=== PATIENT | male | born 1965 | race Caucasian/White ===

== ENCOUNTER 2017-08-05 11:31 | Inpatient (IN) ==
[2017-08-05] MEDS ORDERED: CeFAZolin Syr 2,000MG/20 ML 2,000 MG/20 ML SYRINGE IVPB ONE (12:06)
[2017-08-05] MEDS ORDERED: Ringers Solution, Lactated 1,000 ML IVC SCH (12:15)
[2017-08-05] MEDS ORDERED: Famotidine 20 MG/2 ML VIAL IVP ONE (13:05)
[2017-08-05] MEDS ORDERED: Pregabalin 75 MG CAPSULE PO ONE (13:05)
[2017-08-05] MEDS ORDERED: Acetaminophen IV 1,000 MG/100 ML INFUS..BTL IVPB ONE (13:06)
--- NOTE | 2017-08-05 13:09 | Anesthesia Evaluation PreOp ---
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 History: Denies Any Significant HX Other Medical History: Diabetes Type II, GERD Anesthesia History: No Prior Anesthetic Complications Alcohol Use: none Drug use: none Medications and Allergies Aspirin 81 mg PO DAILY 08/13/16 [History] Gabapentin [Neurontin] 1,200 mg PO TID 08/13/16 [History] Lisinopril [Zestril] 10 mg PO DAILY 08/13/16 [History] Metoprolol [Lopressor] 50 mg PO BID 08/13/16 [History] glipiZIDE [Glucotrol] 5 mg PO BID 08/13/16 [History] Pravastatin Sodium 10 mg PO DAILY 09/22/16 [History] Sitagliptin Phos/Metformin HCl [Janumet 50-1,000 mg Tablet] 1 tab PO BID [History] Ascorbic Acid [Vitamin C] 500 mg PO DAILY 365 Days tablet.er 11/26/16 [Rx] Ferrous Sulfate [Iron] 325 mg PO DAILY #0 11/26/16 [Rx] Loratadine [Allergy Relief] 10 mg PO DAILY PRN #0 11/26/16 [Rx] Tamsulosin [Flomax] 0.4 mg PO DAILY #7 cap.er.24h 01/13/17 [Rx] Albuterol Sulfate [Ventolin Hfa] 2 puff IH Q6H PRN 08/05/17 [History] Celecoxib [Celebrex] 200 mg PO DAILY 08/05/17 [History] Insulin ASPART [NovoLOG] 8 - 12 unit SQ TID PRN 08/05/17 [History] Insulin Glargine,Hum.rec.anlog [Basaglar Kwikpen U-100] 16 unit SQ HS 08/05/17 [ History] Liraglutide [Victoza 2-Artie] 0.6 mg IJ DAILY 08/05/17 [History] Omeprazole [PriLOSEC] 20 mg PO DAILY 08/05/17 [History] Tramadol HCl [Ultram] 50 - 100 mg PO Q8H PRN 08/05/17 [History] 3 Allergy/AdvReac Type Severity Reaction Status Date / Time promethazine [From Phenergan] AdvReac Severe Seizure Verified 08/05/17 12:51 - Meds/Allergy Pre-op Review Medications Reviewed: Yes Allergies Reviewed: Yes Beta Blockers on Current Med List: Yes (Took Metoprolol today 0900) Anesthesia Results - Labs Laboratory Tests 01/13/17 08/03/17 18:36 11:15 Hgb 11.9 L Hct 39.6 Plt Count 307 Sodium 139 Potassium 4.3 BUN 17 Creatinine 0.97 - Imaging EKG: report reviewed (Sinus Rhytmn, moderate intraventricular delay) Anesthesia Exam O2 Sat Height 1.77 m Height 1.77 m Height 1.77 m Weight 108.862 kg Weight 108.862 kg Weight 108.862 kg O2 Sat by Pulse Oximetry 98 Vital Signs Temp Pulse Resp BP Pulse Ox 97.6 F 60 18 121/76 98 08/05/17 11:53 08/05/17 11:53 08/05/17 11:53 08/05/17 11:53 08/05/17 11:53 Height: 5'10 Weight: 240 lbs NPO (# of Hours): MN Pain Scale: 0 - HEENT Pupil (Motor): Pupils equal, EOMI Mallampati: III Teeth: Normal Oral Opening: Less than or equal to 3 - MEAT AND POULTRY INSPECTOR LOC: Oriented MEAT AND POULTRY INSPECTOR Motor: Normal RUE, Normal LUE, Normal RLE, Normal LLE, Normal Face MEAT AND POULTRY INSPECTOR Sensory: Normal: RUE, LUE, RLE, LLE, Face - Cardiac Rhythm: Regular Murmur: None JVD: No Carotid Bruit: No - Pulmonary Breath Sounds: bilateral Clear Respiratory Effort: Symmetrical Anesthesia Assess/Plan ASA Score: 3 (HTN DM Gerd) Modified Laury Scale for Level of Consciousness: Cooperative, oriented, and tranquil Anesthetic Plan: General Monitoring Plan: Standard Monitors Recovery Plan: PACU (Discussed GA, agrees to proceed)
--- NOTE | 2017-08-05 13:31 | History & Physical Report ---
Date of Encounter: 08/05/17 Time of Encounter: 13:30 24 Hour HP Update - Instructions Instructions: If the History and Physical is less than 30 days old and was completed prior to A.M. admission and or procedure and has NOT been updated on calendar day of procedure please complete this update prior to performing procedure. - Update Patient reports changes in Medical Condition: No Changes in examination, assessment, or condition: No Changes in Medication: No Preop tests/diagnostics Reviewed: Yes Surgery Remains Indicated: Yes Consent for Planned Operative Procedure(s) Verified: Yes - Pre-Operative Checklist Preoperative Checklist Indicated: Yes Prophylactic Antibiotic Ordered: Yes Home Medications Include Beta Scott: Yes Beta Scott Taken Today (Day of Surgery): Yes Beta Scott Taken Yesterday (Day Prior to Surgery): Yes Is VTE Prophylaxis Indicated?: Yes
[2017-08-05] MEDS ORDERED: *HR* Succinylcholine 200 MG/10 ML VIAL IVP ONE (14:29)
[2017-08-05] MEDS ORDERED: *HR* Propofol 200 MG/20 ML VIAL IVP ONE ×3 (14:29→17:57)
[2017-08-05] MEDS ORDERED: Lidocaine -MPF 2% 2 ML VIAL ONE (14:29)
[2017-08-05] MEDS ORDERED: *HR* FentaNYL (PF) 100 MCG/2 ML VIAL ONE (14:39)
[2017-08-05] MEDS ORDERED: *HR* Rocuronium Bromide 50 MG/5 ML VIAL ONE (14:40)
[2017-08-05] MEDS ORDERED: Ondansetron 4 MG/2 ML VIAL ONE (14:40)
[2017-08-05] MEDS ORDERED: Dexamethasone 4 MG/ML VIAL ONE (14:40)
[2017-08-05] MEDS ORDERED: *HR* Midazolam HCl 2 MG/2 ML VIAL ONE (14:40)
[2017-08-05] MEDS ORDERED: Lidocaine -MPF 4% 5 ML AMPUL ONE (14:42)
[2017-08-05] MEDS ORDERED: CefOXitin 1,000 MG VIAL ONE (15:18)
[2017-08-05] MEDS ORDERED: Neostigmine Methylsulfate 3 MG/3 ML SYRINGE ONE (16:04)
[2017-08-05] MEDS ORDERED: *HR* HYDROmorphone 2 MG/ML SYRINGE ONE ×2 (16:35→18:27)
[2017-08-05] MEDS ORDERED: *HR* HYDROmorphone (PF) 1 MG/ML SYRINGE IVP PRN (16:37)
[2017-08-05] MEDS ORDERED: Ondansetron 4 MG/2 ML VIAL IVP ONE (16:37)
[2017-08-05] MEDS ORDERED: *HR* Heparin 5,000 UNIT/ML VIAL SQ SCH (18:00)
--- NOTE | 2017-08-05 18:59 | Operative Note ---
Date of procedure: 08/05/17 Pre-op diagnosis: Paraesophageal hernia Post-op diagnosis: same Procedure: #1 open repair of paraesophageal hiatal hernia #2 open Kalli fundoplication Anesthesia: SUE Surgeon: Gomez Perez Was there an assistant corporate secretary present: No Estimated blood loss (cc): 100 Specimen: Hernia sac Condition: stable Disposition: PACU Procedure in Detail: After informed consent patient was taken to the major operative suite placed in the supine position given adequate general anesthetic. The abdomen is prepped and draped in sterile fashion utilizing ChloraPrep standard draping techniques. Timeout was taken and the patient was identified. Midline vertical midline incision the upper abdomen. The left lobe of the liver was mobilized by dividing the triangular ligament and reflecting the left lobe inferiorly. 95% of the stomach was in the chest. There was a very complex set of hernia sacs and folds at the hiatus. I placed a nasogastric tube but was unable to pass this into the abdomen. I began by dissecting the folds of the hernia sac. Once several folds were dissected out is able to reduce the stomach out of the chest. I then pulled the hernia sac down out of the chest and made a circumferential dissection around the hiatus removing all of the hernia sac attachments from mediastinal. I then identified the right and left augusto of the diaphragm. Dissection was aided by placing a lighted bougie in the esophagus. The esophagus was positively identified at all times and there was no trauma to the esophagus. Once all of the stomach was out of the chest I worked on mobilizing the adhesions to the spleen and dividing the short gastrics to the cardia. Once this was accomplished with clips and Harmonic I was able to visualize the right and left augusto with the esophagus retracted upward into the left. I performed hiatal hernia repair. 5 stitches of 2-0 Ethibond with pledgets were used. The repair was performed around the esophagus with a 56- Indonesian bougie in place. The tension on the esophagus was perfect. The mobilized cardia was then brought behind the esophagus and I performed Kalli fundoplication with 3 stitches of 2-0 Ethibond with pledgets. 2 shoulder stitches were created between each side of the Kalli fundoplication and the diaphragm to further stabilize the medicine. I then performed an anterior gastropexy selling the anterior surface of the greater curvature and cardia of the stomach to the diaphragm along its normal anatomic relationship. This gave an excellent technical result. I reviewed copious amounts of antibiotic containing solution. The bougie was removed. Total blood loss 100 mL. Patient tolerated procedure well. Midline was closed with looped 0 PDS skin with interrupted 2-0 Vicryl and skin clips
--- NOTE | 2017-08-05 19:46 | Anesthesia Evaluation Post Op ---
Date of Encounter: 08/05/17 Time of Encounter: 19:45 - Vital Signs Vital Signs: Last Vital Signs Temp 100.5 F H 08/05/17 19:08 Pulse 75 08/05/17 19:28 Resp 16 08/05/17 19:28 BP 114/94 08/05/17 19:28 Pulse Ox 93 08/05/17 19:28 - Lungs Lungs: Clear Ascult./Percussion - Airway Airway: Non-obstructed - Cardiovascular Regular Rate - Mental Status Mental Status: Alert & Oriented, Answers Appropriately - Pain Pain Scale: 5 - Nausea Vomiting Nausea Vomiting: Not Present - Hydration Hydration: NPO - Discharge PostOp Status: Transfer Patient to floor
[2017-08-05] MEDS ORDERED: *HR* Dextrose 50 % in Water (Syg) 50 ML SYRINGE IVP PRN (21:49)
[2017-08-05] MEDS ORDERED: Dextrose Gel 15 GM/37.5 ML TUBE PO PRN ×2 (21:49)
[2017-08-05] MEDS ORDERED: D5% in Water 1,000 ML IVC PRN (21:49)
[2017-08-05] MEDS ORDERED: Ondansetron 4 MG/2 ML VIAL IVP PRN (21:49)
[2017-08-05] MEDS: *HR* HYDROmorphone (PF) 1 MG/ML SYRINGE IVP PRN ×2 (22:27→23:49)
[2017-08-05] MEDS: 0.9 % Sodium Chloride 1,000 ML IVC SCH (23:35)
[2017-08-05] MEDS: CeFAZolin Premix DUPLEX 2,000 MG/50 ML BAG IVPB SCH (23:36)
[2017-08-06] MEDS: *HR* Metoprolol 5 MG/5 ML VIAL IVP SCH ×4 (00:43→17:29)
[2017-08-06] MEDS: Insulin LISPRO 300 UNITS/3 ML VIAL SQ SCH ×4 (00:49→17:28)
[2017-08-06] MEDS: *HR* HYDROmorphone (PF) 1 MG/ML SYRINGE IVP PRN ×14 (02:40→22:37)
[2017-08-06] MEDS: *HR* Heparin 5,000 UNIT/ML VIAL SQ SCH ×2 (05:56→17:36)
[2017-08-06 06:10] LABS: Basophils % 0.2 %; Eosinophils % 0.4 %; Hematocrit 33.7 % (37.5-50.1); Hemoglobin 10.5 g/dL (12.9-16.9); Immature Granulocytes % 0.4 % (0-4); Lymphocytes # 1.1 K/mcL (0.6-4.6); Lymphocytes % 13.1 %; Mean Corpuscular HGB Conc 31.2 g/dL (31.6-35.5); Mean Corpuscular Hemoglobin 25.3 pg (28.0-33.3); Mean Corpuscular Volume 81.2 fL (83.0-100.0); Mean Platelet Volume 9.6 fL (9.4-12.4); Monocytes # 0.7 K/mcL (0.0-1.3); Monocytes % 8.4 %; Neutrophils # 6.6 K/mcL (1.6-8.9); Platelet Count 219 K/mcL (140-400); Red Blood Count 4.15 M/mcL (4.19-5.50); Red Cell Distribution Width 13.1 % (11.5-14.5); Segmented Neutrophils % 77.5 %
[2017-08-06 06:33] LABS: BUN/Creatinine Ratio 18 (6-26); Blood Urea Nitrogen 17 mg/dL (6-20); Calcium 8.4 mg/dL (8.6-10.3); Carbon Dioxide 28 mEq/L (23-29); Chloride 103 mEq/L (98-107); Glucose 155 mg/dL (70-105); Osmolality,Calculated 287 (280-300); Potassium 3.9 mEq/L (3.5-5.1); Sodium 136 mEq/L (136-145); eGFR For African Americans > 60 (> 60); eGFR For Non-African Americans > 60 (> 60)
--- NOTE | 2017-08-06 06:48 | General Surgery Progress Note ---
<RanchoMaribel - Last Filed: 08/06/17 09:52> Date of Encounter: 08/06/17 Time of Encounter: 06:46 - Assessment and Plan (1) S/P repair of paraesophageal hernia Current Visit: Yes Status: Acute 52 y M POD 1 S/P open repair of paraesophageal hiatal hernia and open Kalli fundoplication Remains afebrile this AM, hemodynamically stable. Denies Nausea or vomiting. Continue monitoring bowel function, will plan to advance diet to liquids cautiously following return of normoactive bowel sounds. May have a few ice chips to wet mouth. Serial abdominal examinations Antiemetics PRN ordered, especially for the first 24 hours postoperatively to minimize risk of post-op N/V. Pain management: Dilaudid Q1 PRN, with continuous glass carrier. Call MD if pain acutely worsens. Bowel rest Encourage ambulation with assistance TID, or as tolerated. (2) DM type 2 (diabetes mellitus, type 2) Current Visit: No Status: Chronic Continue accuchecks. Sliding scale, adjust as needed Qualifiers: Diabetes mellitus complication status: with neurologic complications Diabetes mellitus complication detail: with polyneuropathy Diabetes mellitus chcf insulin use: with chcf use Qualified Code(s): E11.42 - Type 2 diabetes mellitus with diabetic polyneuropathy (3) Hypertension Current Visit: No Status: Chronic Continue medical management. IV lopressor while NPO. Qualifiers: Hypertension type: essential hypertension Qualified Code(s): I10 - Essential (primary) hypertension (4) DVT prophylaxis Current Visit: Yes Status: Acute Postoperative patient. Heparin SubQ. Subjective Patient reports: still having pain, no flatus, no bowel movement, afebrile Narrative: Recorded two consecutive temps of 100.3 and 100.5 yesterday evening at approx [id number]. Afebrile later that evening and this morning. Denies nausea/ vomiting. Endorses pain. States pain worsens with intermittent coughing. Patient requests ice chips. Objective Vital Signs - Last 8 Hours Temp Pulse Resp BP Pulse Ox 08/06/17 04:39 98.4 F 88 16 135/76 98 08/06/17 00:18 98.6 F 88 14 138/76 89 Intake and Output 08/05/17 08/05/17 08/06/17 15:59 23:59 07:59 Intake Total 50 / 50 Output Total 100 / 100 850 / 850 Balance -100 / -100 -800 / -800 Intake: IV Fluids 50 / 50 Ancef Premix DUPLEX 2,000 mg In 50 / 50 50 ml @ 100 mls/hr IVPB Q8HR [facility] Rx#:[id number] Oral 0 / 0 Output: Urine 550 / 550 Estimated Blood Loss 100 / 100 Catheter 300 / 300 Other: Weight 108.862 kg 108.886 kg Blood Glucose* 122 186 143 Patient Weight 08/06/17 23:59 Weight 108.886 kg - General physical appearance no distress, moderate pain - Eyes normal ocular movement - Respiratory normal expansion, normal respiratory effort, clear to auscultation - Cardiovascular Cardiovascular exam: Present: RRR, no murmurs/rubs/gallops - Abdomen Abdomen: Present: soft, non tender Additional Comments: hypoactive bowel sounds - Neurologic normal coordination - Psychiatric oriented to time, oriented to person, oriented to place, speech is normal - Labs 08/06/17 05:41 08/06/17 05:41 Diabetes panel 08/06/17 Range/Units 05:41 Sodium 136 (136-145) mEq/L Potassium 3.9 (3.5-5.1) mEq/L Chloride 103 (98-107) mEq/L Carbon Dioxide 28 (23-29) mEq/L BUN 17 (6-20) mg/dL Creatinine 0.94 (0.70-1.30) mg/dL Glucose 155 H (70-105) mg/dL Calcium 8.4 L (8.6-10.3) mg/dL Calcium panel 08/06/17 Range/Units 05:41 Calcium 8.4 L (8.6-10.3) mg/dL Pituitary panel 08/06/17 Range/Units 05:41 Sodium 136 (136-145) mEq/L Potassium 3.9 (3.5-5.1) mEq/L Chloride 103 (98-107) mEq/L Carbon Dioxide 28 (23-29) mEq/L BUN 17 (6-20) mg/dL Creatinine 0.94 (0.70-1.30) mg/dL Glucose 155 H (70-105) mg/dL Calcium 8.4 L (8.6-10.3) mg/dL Adrenal panel 08/06/17 Range/Units 05:41 Sodium 136 (136-145) mEq/L Potassium 3.9 (3.5-5.1) mEq/L Chloride 103 (98-107) mEq/L Carbon Dioxide 28 (23-29) mEq/L BUN 17 (6-20) mg/dL Creatinine 0.94 (0.70-1.30) mg/dL Glucose 155 H (70-105) mg/dL Calcium 8.4 L (8.6-10.3) mg/dL - VTE Documentation of Mechanical Device: Intermittent pneumatic compression device Consult Discharge Plan - Plan Instructions: Adult Open Kalli Fundoplication (DC) Additional Instructions: General Instructions After Kalli Surgery 1. No pushing, pulling, or lifting greater than 15 lbs for two weeks. 2. You may shower beginning today, but no tub baths, soaking, or swimming for 2 weeks. 3. You may resume driving when you are off narcotics and are safe to react in a car. 4. Take narcotics as directed. Do not take more narcotics then directed and do not share your narcotics with any other person. Do not drink alcohol while on narcotics. 5. Take stool softeners (Colace) or a water based laxative (Miramax) while taking narcotics. You may hold for loose stools. 6. Report any fevers greater than 100.5F, increase abdominal discomfort, drainage that looks like pus, increased redness or pain at the surgical site, or any vomiting. 7. Report any pain in the calves, shortness of breath, or rapid heartbeat. 8. Continue to take your heartburn medications until directed to stop. Do not stop them abruptly as this can cause symptoms of reflux. 9. Do not drink alcohol or carbonated beverages. 10. Do not deviate from the recommended Kalli diet below. Doing so can affect your outcomes. [place] [facility] Diet After Kalli Fundoplication Surgery This diet information is for patients who have recently had Kalli Fundoplication Surgery to correct reflux disease or to repair various types of hernias, such as hiatal hernia and intrathoracic stomach. This diet may also be used for other gastrointestinal surgeries, such as Heller myotomy and repair of achalasia. The diet will help control diarrhea, excess gas and swallowing problems, which may occur after this type of surgery. Important Steps to Keep Your Stomach From Stretching Eat small, frequent meals (six to eight per day). This will help you consume the majority of the nutrients you need without causing your stomach to feel full or distended. Drinking large amounts of fluids with meals can stretch your stomach. You may drink fluids between meals as often as you like, but limit fluids to 1/2 cup (4 fluid ounces) with meals and one cup (8 fluid ounces) with snacks. Sit upright while eating, and stay upright for 30 minutes after each meal. [place] can help food move through your digestive tract. Do not lie down after eating. Sit upright for 2 hours after your last meal or snack of the day. Eat very slowly. Take your time when eating. Take small bites and chew your food well to slat basket maker helper machine in swallowing and digestion. Avoid crusty breads and sticky, gummy foods, such as bananas, fresh doughy breads, rolls and doughnuts. These types of foods become sticky and difficult to swallow. Toasted breads tend to be better tolerated. Lastly, if you eat sweets, consume them at the end of your meal to avoid a group of symptoms referred to as dumping syndrome. This describes the rapid emptying of foods from the stomach to the small intestine. Sweetened beverages, candy and desserts move more rapidly and dump quickly into the intestines. This can cause symptoms of nausea, weakness, cold sweats, cramps, diarrhea and dizzy spells. Important Steps to Avoid Gas Do not drink through a straw, chew gum, or chew tobacco. These actions cause you to swallow air, which will produce excess gas in your stomach. Chew with your mouth closed and chew your food thoroughly. Avoid foods that cause stomach gas and distention. The foods include corn, dried beans, peas, lentils, onions, broccoli, cauliflower, and any food item from the cabbage family. Do not drink carbonated drinks, alcohol, citrus, or tomato products. What Will I Be Able To Eat and Drink After Surgery After Kalli Fundoplication Surgery, your diet will be advanced slowly by your surgeon. Generally, you will be on a thin/clear liquid diet for the first 10 days. Then you will advance to the full liquid diet for 4 days and eventually to a Kalli soft diet for 7 days. After any surgery, protein consumption is important for healing. To get enough protein, drink 3-4 [place] Instant Breakfast, Ensure, or equivalent daily. Reminder: Carbonated beverages (such as sodas, energy drinks, flavored carbonated water), and alcohol are not permitted for the 1st 6 to 8 weeks after surgery. After this time you may attempt to reintroduce them in small amounts. Please note: Dairy products such as milk, ice cream, and pudding may cause diarrhea in some people after surgery. You may need to avoid milk products. If so you may substitute them with lactose free beverages, such as soy, rice, lactate, or almond milk. Please be aware that each patient's tolerance to food is different. Your doctor will advance your diet depending on how well you progress after surgery. Thin Liquid Diet The first diet after Kalli Fundoplication Surgery is the thin liquids diet. Follow this diet for postoperative days 1-10 [ ]- [ ]. Thin liquids include: Apple, Cranberry, or Grape Juice (no citrus juice) Chicken Broth Beef Broth Flavored Gelatin (Jell-O) Decaffeinated Tea or Coffee Popsicles or Lebanese Ice Caffeinated Beverages Will Be Permitted Based upon Tolerance and at a later date Dairy if tolerated Thin Milkshakes (strawberry or vanilla flavored- No chocolate) Drink 3-4 [place] instant breakfast, Ensure, or equivalent daily. May be mixed with dairy for thin milkshakes Full Liquid Diet Follow this diet for postoperative days 11-14[ ] - [ ]. Full liquid diet includes anything in the thin liquid diet plus: Milk: Dairy, Soy, Rice, and [place] (No Chocolate) Cream of Wheat, Cream of Rice, Grits Strained Creamed Soups (No Tomato or Broccoli) Vanilla and [place] Flavored Ice Cream Sherbet Vanilla and Butterscotch Pudding (No Chocolate or Coconut) Continue 3-4 [place] Instant Breakfast, Ensure, or an Equivalent Daily. May be mixed with Dairy for Thin Milkshakes. Kalli Soft Diet Follow this diet for postoperative days 15-20 [ ] - [ ]. (If you are consuming enough protein, you may stop the protein supplements). Please note: You will need extra fluids throughout the day to meet your fluid needs. Referrals: June Bull CNP [Primary Care Provider] - Ana Sanches CNP [Advanced Practice Nurse] - 08/17/17 2:20 pm Prescriptions: Ondansetron ODT [Zofran ODT] 4 mg SL Q6HR #15 tab.rapdis OxyCODONE/APAP 10/325 [Percocet 10/325 MG] 1 each PO Q6HR PRN #24 tablet PRN Reason: Pain Ibuprofen [Motrin] 800 mg PO Q8HR #42 tablet Docusate [Colace] 100 mg PO BID #30 capsule <Gomez Perez - Last Filed: 08/09/17 08:56> Date of Encounter: 08/06/17 Objective Vital Signs - Last 8 Hours Temp Pulse Resp BP Pulse Ox 08/09/17 07:29 97.9 F 66 16 156/91 94 08/09/17 03:23 98.3 F 75 17 136/81 93 Intake and Output 08/08/17 08/09/17 08/09/17 23:59 07:59 15:59 Intake Total 480 / 480 Output Total 0 / 0 Balance 480 / 480 0 / 0 Intake: Oral 480 / 480 Output: Urine 0 / 0 Other: Meal Full # Voids 1 1 # Bowel Movements 0 Blood Glucose* 213 147 - Labs 08/06/17 05:41 08/06/17 05:41 - Attending Attestation I examined this patient and my medical decision-making was reviewed with the Resident Physician. I agree with the documented findings, disposition and treatment plan as described except to the extent set forth below. The patient is seen and evaluated on morning rounds with the resident. He is having difficulty with pain control make sure that he receives his when necessary narcotics on time. We should be able to advance his diet weekend. Gomez Perez MD FACS
[2017-08-06] MEDS: CeFAZolin Premix DUPLEX 2,000 MG/50 ML BAG IVPB SCH (08:24)
[2017-08-06] MEDS: Pantoprazole 40 MG VIAL IVP SCH (08:24)
[2017-08-06] MEDS: 0.9 % Sodium Chloride 1,000 ML IVC SCH ×2 (08:24→18:51)
[2017-08-06] MEDS ORDERED: Ketorolac 15 MG/ML VIAL IVP SCH (15:30)
[2017-08-06] MEDS: Ketorolac 15 MG/ML VIAL IVP SCH ×2 (16:53→22:04)
[2017-08-07] MEDS: Insulin LISPRO 300 UNITS/3 ML VIAL SQ SCH ×5 (00:11→23:58)
[2017-08-07] MEDS: *HR* HYDROmorphone (PF) 1 MG/ML SYRINGE IVP PRN ×12 (00:12→21:13)
[2017-08-07] MEDS: *HR* Metoprolol 5 MG/5 ML VIAL IVP SCH ×4 (00:12→18:06)
[2017-08-07] MEDS: Ketorolac 15 MG/ML VIAL IVP SCH ×4 (03:57→23:16)
[2017-08-07] MEDS: 0.9 % Sodium Chloride 1,000 ML IVC SCH ×2 (04:38→15:04)
[2017-08-07] MEDS: *HR* Heparin 5,000 UNIT/ML VIAL SQ SCH ×2 (06:27→18:06)
[2017-08-07] MEDS: Pantoprazole 40 MG VIAL IVP SCH (09:25)
--- NOTE | 2017-08-07 09:46 | General Surgery Progress Note ---
Addendum entered and electronically signed by Maribel Vickers MD 08/07/17 14:27: Pt re-evaluated with attending. Pt now endorses has since passed gas since morning rounds. States pain improving. -Aim to transition patient's pain management, titrate dilaudid down to q2h -Wound healing appropriately, with serina in place. Begin Daily dressing changes -D/c gunn -Cautious advancement to clear liquid diet Original Note: <Maribel Vickers - Last Filed: 08/07/17 09:43> Date of Encounter: 08/07/17 Time of Encounter: 09:43 - Assessment and Plan (1) S/P repair of paraesophageal hernia Current Visit: Yes Status: Acute 52 y M POD 2 S/P open repair of paraesophageal hiatal hernia and open Kalli fundoplication Remains afebrile this AM, hemodynamically stable. Serial abdominal examinations Antiemetics PRN ordered Continue pain management Encourage ambulation with assistance TID, or as tolerated. (2) DM type 2 (diabetes mellitus, type 2) Current Visit: No Status: Chronic Continue accuchecks. 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 IV lopressor while NPO. Qualifiers: Hypertension type: essential hypertension Qualified Code(s): I10 - Essential (primary) hypertension (4) DVT prophylaxis Current Visit: Yes Status: Acute Postoperative patient. Heparin SubQ. Subjective Patient reports: feels better, pain is less (rates pain now at 6-7), voiding w/ o difficulty, no flatus, no bowel movement, afebrile Narrative: No acute events overnight. Tolerating ice chips without difficulty. Requests advancement to liquid diet. Objective Vital Signs - Last 8 Hours Temp Pulse Resp BP Pulse Ox 08/07/17 06:29 98.2 F 88 16 142/81 93 08/07/17 04:28 97.4 F L 93 16 147/82 90 Intake and Output 08/06/17 08/07/17 08/07/17 23:59 07:59 15:59 Intake Total 1000 / 1000 1000 / 1000 387 / 387 Output Total 800 / 800 500 / 500 Balance 200 / 200 500 / 500 387 / 387 Intake: IV Fluids 1000 / 1000 1000 / 1000 387 / 387 0.9 % Sodium Chloride 1,000 ML 1000 / 1000 1000 / 1000 387 / 387 @ 100 mls/hr IVC .Q10H [facility] Rx#: [id number] Oral 0 / 0 0 / 0 Output: Catheter 800 / 800 500 / 500 Other: Meal NPO NPO Percent of Meal Consumed 0% # Bowel Movements 0 Weight 108.667 kg Blood Glucose* 118 139 Patient Weight 08/07/17 23:59 Weight 108.667 kg - General physical appearance no distress - Eyes normal ocular movement - Respiratory normal expansion, normal respiratory effort, clear to auscultation - Cardiovascular Cardiovascular exam: Present: RRR, no murmurs/rubs/gallops - Abdomen Abdomen: Present: bowel sounds present, soft, non tender (on light palpation), tender - Incision Incision: Present: intact (dressing). Absent: draining - Neurologic normal coordination - Psychiatric oriented to time, oriented to person, oriented to place, speech is normal - Labs 08/06/17 05:41 08/06/17 05:41 - VTE Documentation of Mechanical Device: Intermittent pneumatic compression device Consult Discharge Plan - Plan Referrals: June Bull CNP [Primary Care Provider] - Ana Sanches CNP [Advanced Practice Nurse] - 08/17/17 2:20 pm <Adan Mix - Last Filed: 08/07/17 18:15> Date of Encounter: 08/07/17 Objective Vital Signs - Last 8 Hours Temp Pulse Resp BP Pulse Ox 08/07/17 15:05 98.1 F 91 18 137/72 92 08/07/17 13:24 76 132/77 95 08/07/17 11:35 97 08/07/17 10:51 97.8 F 86 16 135/74 94 Intake and Output 08/07/17 08/07/17 08/07/17 07:59 15:59 23:59 Intake Total 1000 / 1000 2067 / 2067 Output Total 500 / 500 900 / 900 250 / 250 Balance 500 / 500 1167 / 1167 -250 / -250 Intake: IV Fluids 1000 / 1000 1387 / 1387 0.9 % Sodium Chloride 1,000 ML 1000 / 1000 1387 / 1387 @ 100 mls/hr IVC .Q10H [facility] Rx#: [id number] Oral 0 / 0 680 / 680 Output: Urine 300 / 300 250 / 250 Catheter 500 / 500 600 / 600 Other: Meal NPO # Bowel Movements 0 0 Weight 108.667 kg Blood Glucose* 139 147 138 Patient Weight 08/07/17 23:59 Weight 108.667 kg - Labs 08/06/17 05:41 08/06/17 05:41 - Attending Attestation I examined this patient and my medical decision-making was reviewed with the Resident Physician. I agree with the documented findings, disposition and treatment plan as described except to the extent set forth below. Review the above assessment and evaluation with the chemical engineering intern present. We will start dressing changes today. Remove Gunn catheter and encourage ambulation. We will start clears and start oral pain medication and will start to decrease IV pain medication.
[2017-08-07] MEDS ORDERED: *HR* Metoprolol 5 MG/5 ML VIAL IVP ONE (11:48)
[2017-08-07] MEDS: *HR* OxyCODONE/APAP 7.5/325 TABLET PO PRN ×2 (14:35→20:28)
[2017-08-08] MEDS: *HR* OxyCODONE/APAP 7.5/325 TABLET PO PRN ×4 (00:07→20:35)
[2017-08-08] MEDS: *HR* Metoprolol 5 MG/5 ML VIAL IVP SCH ×3 (00:07→12:12)
[2017-08-08] MEDS: *HR* HYDROmorphone (PF) 1 MG/ML SYRINGE IVP PRN ×4 (01:34→23:04)
[2017-08-08] MEDS: Ketorolac 15 MG/ML VIAL IVP SCH ×4 (04:03→21:32)
[2017-08-08] MEDS: *HR* Heparin 5,000 UNIT/ML VIAL SQ SCH ×2 (06:15→17:59)
[2017-08-08] MEDS: Insulin LISPRO 300 UNITS/3 ML VIAL SQ SCH ×3 (06:24→16:37)
[2017-08-08] MEDS: Pantoprazole 40 MG VIAL IVP SCH (09:01)
--- NOTE | 2017-08-08 10:16 | General Surgery Progress Note ---
<Maribel Vickers - Last Filed: 08/08/17 12:54> Date of Encounter: 08/08/17 Time of Encounter: 10:14 - Assessment and Plan (1) S/P repair of paraesophageal hernia Current Visit: Yes Status: Acute 52 y M POD 3 S/P open repair of paraesophageal hiatal hernia and open Kalli fundoplication Remains afebrile this AM, hemodynamically stable. Serial abdominal examinations Conservative advancement of diet, based upon return of bowel functions Antiemetics PRN ordered Continue pain management Encourage ambulation with assistance TID, or as tolerated. (2) DM type 2 (diabetes mellitus, type 2) Current Visit: No Status: Chronic Continue accuchecks. Sliding scale, adjust as needed Qualifiers: Diabetes mellitus complication detail: with unspecified neuropathy Diabetes mellitus heat and frost insulator helper insulin use: unspecified heat and frost insulator helper insulin use status Qualified Code(s): E11.40 - Type 2 diabetes mellitus with diabetic neuropathy, unspecified (3) Hypertension Current Visit: No Status: Chronic Continue medical management. Qualifiers: Hypertension type: essential hypertension Qualified Code(s): I10 - Essential (primary) hypertension (4) DVT prophylaxis Current Visit: Yes Status: Acute Heparin SubQ. Subjective Patient reports: no new complaints, feels better, tolerating liquids well, voiding w/o difficulty, flatus, no bowel movement, afebrile Narrative: No acute events overnight. Has not required Dilaudid this AM. States he is still "sore". Rates "sore" pain at a 7/10. Objective Vital Signs - Last 8 Hours Temp Pulse Resp BP Pulse Ox 08/08/17 10:10 98.3 F 71 16 134/82 96 08/08/17 07:37 97.8 F 67 18 147/84 94 08/08/17 04:03 98.4 F 74 17 148/85 93 Intake and Output 08/07/17 08/08/17 08/08/17 23:59 07:59 15:59 Intake Total 480 / 480 Output Total 450 / 450 615 / 615 300 / 300 Balance 30 / 30 -615 / -615 -300 / -300 Intake: Oral 480 / 480 Output: Urine 450 / 450 615 / 615 300 / 300 Other: # Bowel Movements 0 0 Blood Glucose* 168 133 - General physical appearance well developed, no distress - Eyes normal ocular movement - Respiratory normal expansion, normal respiratory effort, clear to auscultation - Cardiovascular Cardiovascular exam: Present: regular rhythm Addtional Comments: +S1, S2 - Abdomen Abdomen: Present: bowel sounds present, soft, non tender - Incision Incision: Present: intact. Absent: draining - Labs 08/06/17 05:41 08/06/17 05:41 - VTE Documentation of Mechanical Device: Intermittent pneumatic compression device Consult Discharge Plan - Plan Referrals: June Bull CNP [Primary Care Provider] - Ana Sanches CNP [Advanced Practice Nurse] - 08/17/17 2:20 pm <Adan Mix - Last Filed: 08/08/17 17:25> Date of Encounter: 08/08/17 Objective Vital Signs - Last 8 Hours Temp Pulse Resp BP Pulse Ox 08/08/17 14:29 97.9 F 75 16 128/91 95 08/08/17 10:10 98.3 F 71 16 134/82 96 Intake and Output 08/08/17 08/08/17 08/08/17 07:59 15:59 23:59 Intake Total 840 / 840 Output Total 615 / 615 525 / 525 Balance -615 / -615 315 / 315 Intake: Oral 840 / 840 Output: Urine 615 / 615 525 / 525 Other: Meal Breakfast # Bowel Movements 0 0 Blood Glucose* 133 207 82 - Labs 08/06/17 05:41 08/06/17 05:41 - Attending Attestation I examined this patient and my medical decision-making was reviewed with the Resident Physician. I agree with the documented findings, disposition and treatment plan as described except to the extent set forth below. I reviewed the above assessment and evaluation and agree with the above plan. Will further decrease his IV pain medication. Continue with current diet. Main issues will be pain control but likely discharge planning within the next 24 hours.
[2017-08-08] MEDS ORDERED: Insulin LISPRO 300 UNITS/3 ML VIAL SQ SCH ×2 (17:00→21:00)
[2017-08-09] MEDS: *HR* OxyCODONE/APAP 7.5/325 TABLET PO PRN (02:29)
[2017-08-09] MEDS: Ketorolac 15 MG/ML VIAL IVP SCH (03:17)
[2017-08-09] MEDS: *HR* HYDROmorphone (PF) 1 MG/ML SYRINGE IVP PRN (03:17)
[2017-08-09] MEDS: *HR* Heparin 5,000 UNIT/ML VIAL SQ SCH (06:25)
--- NOTE | 2017-08-09 07:16 | Discharge Summary ---
<Ana Sanches - Last Filed: 08/09/17 08:49> Date of Encounter: 08/09/17 - Discharge Medications Prescriptions: Ondansetron ODT [Zofran ODT] 4 mg SL Q6HR #15 tab.rapdis OxyCODONE/APAP 10/325 [Percocet 10/325 MG] 1 each PO Q6HR PRN #24 tablet PRN Reason: Pain Ibuprofen [Motrin] 800 mg PO Q8HR #42 tablet Docusate [Colace] 100 mg PO BID #30 capsule Home Medications: Aspirin 81 mg PO DAILY 08/13/16 [History] Gabapentin [Neurontin] 1,200 mg PO TID 08/13/16 [History] Lisinopril [Zestril] 10 mg PO DAILY 08/13/16 [History] Metoprolol [Lopressor] 50 mg PO BID 08/13/16 [History] glipiZIDE [Glucotrol] 5 mg PO BID 08/13/16 [History] Pravastatin Sodium 10 mg PO DAILY 09/22/16 [History] Sitagliptin Phos/Metformin HCl [Janumet 50-1,000 mg Tablet] 1 tab PO BID [History] Ascorbic Acid [Vitamin C] 500 mg PO DAILY 365 Days tablet.er 11/26/16 [Rx] Ferrous Sulfate [Iron] 325 mg PO DAILY #0 11/26/16 [Rx] Loratadine [Allergy Relief] 10 mg PO DAILY PRN #0 11/26/16 [Rx] Tamsulosin [Flomax] 0.4 mg PO DAILY #7 cap.er.24h 01/13/17 [Rx] Albuterol Sulfate [Ventolin Hfa] 2 puff IH Q6H PRN 08/05/17 [History] Celecoxib [Celebrex] 200 mg PO DAILY 08/05/17 [History] Insulin ASPART [NovoLOG] 8 - 12 unit SQ TID PRN 08/05/17 [History] Insulin Glargine,Hum.rec.anlog [Basaglar Kwikpen U-100] 16 unit SQ HS 08/05/17 [ History] Liraglutide [Victoza 2-Artie] 0.6 mg IJ DAILY 08/05/17 [History] Omeprazole [PriLOSEC] 20 mg PO DAILY 08/05/17 [History] Tramadol HCl [Ultram] 50 - 100 mg PO Q8H PRN 08/05/17 [History] Docusate [Colace] 100 mg PO BID #30 capsule 08/09/17 [Rx] Ibuprofen [Motrin] 800 mg PO Q8HR #42 tablet 08/09/17 [Rx] Ondansetron ODT [Zofran ODT] 4 mg SL Q6HR #15 tab.rapdis 08/09/17 [Rx] OxyCODONE/APAP 10/325 [Percocet 10/325 MG] 1 each PO Q6HR PRN #24 tablet [Rx] Allergies/Adverse Reactions: 3 Allergy/AdvReac Type Severity Reaction Status Date / Time promethazine [From Phenergan] AdvReac Severe Seizure Verified 08/05/17 12:51 General Surgery Exam Initial Vital Signs Temp Pulse Resp BP Pulse Ox 97.6 F 60 18 121/76 98 08/05/17 11:53 08/05/17 11:53 08/05/17 11:53 08/05/17 11:53 08/05/17 11:53 Date of admission: 08/05/17 20:10 Primary care physician: June Bull - Patient Status Disposition: Home, Self-Care Condition: Good - Discharge Instructions Instructions: Oxycodone/Acetaminophen (By mouth), Laxative, Stool Softeners ( By mouth), Adult Open Kalli Fundoplication (DC) Follow Up With: Ana Sanches LAND MANAGER [Advanced Practice Nurse] - 08/17/17 2:20 pm Additional Instructions: General Instructions After Kalli Surgery 1. No pushing, pulling, or lifting greater than 15 lbs for two weeks. 2. You may shower beginning today, but no tub baths, soaking, or swimming for 2 weeks. 3. You may resume driving when you are off narcotics and are safe to react in a car. 4. Take narcotics as directed. Do not take more narcotics then directed and do not share your narcotics with any other person. Do not drink alcohol while on narcotics. 5. Take stool softeners (Colace) or a water based laxative (Miramax) while taking narcotics. You may hold for loose stools. 6. Report any fevers greater than 100.5F, increase abdominal discomfort, drainage that looks like pus, increased redness or pain at the surgical site, or any vomiting. 7. Report any pain in the calves, shortness of breath, or rapid heartbeat. 8. Continue to take your heartburn medications until directed to stop. Do not stop them abruptly as this can cause symptoms of reflux. 9. Do not drink alcohol or carbonated beverages. 10. Do not deviate from the recommended Kalli diet below. Doing so can affect your outcomes. [place] Diet After Kalli Fundoplication Surgery This diet information is for patients who have recently had Kalli Fundoplication Surgery to correct reflux disease or to repair various types of hernias, such as hiatal hernia and intrathoracic stomach. This diet may also be used for other gastrointestinal surgeries, such as Heller myotomy and repair of achalasia. The diet will help control diarrhea, excess gas and swallowing problems, which may occur after this type of surgery. Important Steps to Keep Your Stomach From Stretching Eat small, frequent meals (six to eight per day). This will help you consume the majority of the nutrients you need without causing your stomach to feel full or distended. Drinking large amounts of fluids with meals can stretch your stomach. You may drink fluids between meals as often as you like, but limit fluids to 1/2 cup (4 fluid ounces) with meals and one cup (8 fluid ounces) with snacks. Sit upright while eating, and stay upright for 30 minutes after each meal. [place] can help food move through your digestive tract. Do not lie down after eating. Sit upright for 2 hours after your last meal or snack of the day. Eat very slowly. Take your time when eating. Take small bites and chew your food well to librarian helper in swallowing and digestion. Avoid crusty breads and sticky, gummy foods, such as bananas, fresh doughy breads, rolls and doughnuts. These types of foods become sticky and difficult to swallow. Toasted breads tend to be better tolerated. Lastly, if you eat sweets, consume them at the end of your meal to avoid a group of symptoms referred to as dumping syndrome. This describes the rapid emptying of foods from the stomach to the small intestine. Sweetened beverages, candy and desserts move more rapidly and dump quickly into the intestines. This can cause symptoms of nausea, weakness, cold sweats, cramps, diarrhea and dizzy spells. Important Steps to Avoid Gas Do not drink through a straw, chew gum, or chew tobacco. These actions cause you to swallow air, which will produce excess gas in your stomach. Chew with your mouth closed and chew your food thoroughly. Avoid foods that cause stomach gas and distention. The foods include corn, dried beans, peas, lentils, onions, broccoli, cauliflower, and any food item from the cabbage family. Do not drink carbonated drinks, alcohol, citrus, or tomato products. What Will I Be Able To Eat and Drink After Surgery After Kalli Fundoplication Surgery, your diet will be advanced slowly by your surgeon. Generally, you will be on a thin/clear liquid diet for the first 10 days. Then you will advance to the full liquid diet for 4 days and eventually to a Kalli soft diet for 7 days. After any surgery, protein consumption is important for healing. To get enough protein, drink 3-4 [place] Instant Breakfast, Ensure, or equivalent daily. Reminder: Carbonated beverages (such as sodas, energy drinks, flavored carbonated water), and alcohol are not permitted for the 1st 6 to 8 weeks after surgery. After this time you may attempt to reintroduce them in small amounts. Please note: Dairy products such as milk, ice cream, and pudding may cause diarrhea in some people after surgery. You may need to avoid milk products. If so you may substitute them with lactose free beverages, such as soy, rice, lactate, or almond milk. Please be aware that each patient's tolerance to food is different. Your doctor will advance your diet depending on how well you progress after surgery. Thin Liquid Diet The first diet after Kalli Fundoplication Surgery is the thin liquids diet. Follow this diet for postoperative days 1-10 [ ]- [ ]. Thin liquids include: Apple, Cranberry, or Grape Juice (no citrus juice) Chicken Broth Beef Broth Flavored Gelatin (Jell-O) Decaffeinated Tea or Coffee Popsicles or Indonesian Ice Caffeinated Beverages Will Be Permitted Based upon Tolerance and at a later date Dairy if tolerated Thin Milkshakes (strawberry or vanilla flavored- No chocolate) Drink 3-4 [place] instant breakfast, Ensure, or equivalent daily. May be mixed with dairy for thin milkshakes Full Liquid Diet Follow this diet for postoperative days 11-14[ ] - [ ]. Full liquid diet includes anything in the thin liquid diet plus: Milk: Dairy, Soy, Rice, and [place] (No Chocolate) Cream of Wheat, Cream of Rice, Grits Strained Creamed Soups (No Tomato or Broccoli) Vanilla and Fishs [place] Flavored Ice Cream Sherbet Vanilla and Butterscotch Pudding (No Chocolate or Coconut) Continue 3-4 [place] Instant Breakfast, Ensure, or an Equivalent Daily. May be mixed with Dairy for Thin Milkshakes. Kalli Soft Diet Follow this diet for postoperative days 15-20 [ ] - [ ]. (If you are consuming enough protein, you may stop the protein supplements). Please note: You will need extra fluids throughout the day to meet your fluid needs. - Diet and Activity Activity: increase activity as tolerated - Hospital Course Hospital course: Mr. Dewitt is a 52 year old male - Time Spent with Patient Total time spent providing and/or coordinating discharge services: Labs on day of discharge: Labs from last 24 hours 08/09/17 08/08/17 08/08/17 07:32 20:32 16:29 POC Glucose 147 H 213 H 82 08/08/17 08/08/17 11:54 06:22 POC Glucose 207 H 133 H <Maribel Vickers - Last Filed: 08/09/17 08:51> Date of Encounter: 08/09/17 Time of Encounter: 07:16 - Discharge Diagnosis (1) S/P repair of paraesophageal hernia Priority: Primary Status: Acute (2) DM type 2 (diabetes mellitus, type 2) Priority: Secondary Status: Chronic Qualifiers: Diabetes mellitus complication detail: with unspecified neuropathy Diabetes mellitus termite inspector insulin use: unspecified termite inspector insulin use status Qualified Code(s): E11.40 - Type 2 diabetes mellitus with diabetic neuropathy, unspecified (3) Hypertension Priority: Secondary Status: Chronic Qualifiers: Hypertension type: essential hypertension Qualified Code(s): I10 - Essential (primary) hypertension (4) DVT prophylaxis Priority: Secondary Status: Acute General Surgery Exam Initial Vital Signs Temp Pulse Resp BP Pulse Ox 97.6 F 60 18 121/76 98 08/05/17 11:53 08/05/17 11:53 08/05/17 11:53 08/05/17 11:53 08/05/17 11:53 - General physical appearance no distress - Eyes normal ocular movement - Cardiovascular Cardiovascular exam: Present: RRR, no murmurs/rubs/gallops - Abdomen Abdomen general surgery: Present: bowel sounds present, soft, non tender - Incision Incision: Present: clean and dry, intact - Psychiatric Psychiatric general surgery: Present: oriented to person, oriented to place, oriented to time, speech is normal, memory intact Date of admission: 08/05/17 20:10 Primary care physician: June Bull Discharging clinician: Maribel Vickers Anticipated date of discharge: 08/09/17 - Patient Status Overall status at discharge: patient is progressing back to baseline - Diet and Activity Activity: increase activity as tolerated Diet: other (Kalli diet only. Do not deviate from the Kalli Diet. ) - Hospital Course Hospital course: Mr. Dewitt is a 52 year old male with a PMHX of HTN, Hyperlipidemia, Diabetes Type II, GERD, and OSDA who presented for a #1 open repair of paraesophageal hiatal hernia #2 open Kalli fundoplication. The patient's clinical status was monitored for four days following the procedure for clinical stability. He was educated on the Kalli diet by the nurse practitioner prior to discharge and counseled on appropriate postoperative care. - Time Spent with Patient Total time spent providing and/or coordinating discharge services: Procedures and tests throughout hospitalization: #1 Open repair of paraesophageal hiatal hernia #2 open Kalli fundoplication Labs on day of discharge: Labs from last 24 hours 08/08/17 08/08/17 08/08/17 20:32 16:29 11:54 POC Glucose 213 H 82 207 H 08/08/17 06:22 POC Glucose 133 H <Gomez Perez - Last Filed: 08/10/17 15:01> Date of Encounter: 08/09/17 General Surgery Exam Initial Vital Signs Temp Pulse Resp BP Pulse Ox 97.6 F 60 18 121/76 98 08/05/17 11:53 08/05/17 11:53 08/05/17 11:53 08/05/17 11:53 08/05/17 11:53 Date of admission: 08/05/17 20:10 Primary care physician: June Bull - Hospital Course Hospital course: Mr. Dewitt is a 52 year old male - Time Spent with Patient Total time spent providing and/or coordinating discharge services: - Attending Attestation I examined this patient and my medical decision-making was reviewed with the Resident Physician. I agree with the documented findings, disposition and treatment plan as described except to the extent set forth below. The patient is seen and evaluated on morning rounds with the resident. He is able to tolerate full liquid diet. Pain control is adequate. Discharged to home. Gomez Perez MD FACS
[2017-08-09 07:37] VITALS: BP 156/91
[2017-08-09] MEDS: Insulin LISPRO 300 UNITS/3 ML VIAL SQ SCH (08:10)
[2017-08-09] MEDS ORDERED: *HR* OxyCODONE/APAP 10/325 TABLET PO PRN (08:37)
== END 2017-08-09 11:11 | disposition home or self-care (01) | DRG 220 ==
LOC: SAMDAY 11:31 → 3ANU 20:10
PROVIDERS: ADMIT Surgery; ATTEND Surgery